=== PATIENT | male | born 1995 | race Two or more races ===

== ENCOUNTER 2024-12-28 19:37 | Emergency (ER) | payer OTHER, SELFPAY ==
[~2024-12-28] VITALS: Ht 185.4 cm; Wt 87.0 kg
[2024-12-28 19:40] VITALS: BP 118/72; PULSE 94; RESP 18; TEMP 98.4; O2SAT 97
[2024-12-28] MEDS: FLUORESCEIN SOD OPTH TEST STRIP LEFTEYE ONE (22:00)
[2024-12-28] MEDS: FLUORESCEIN SOD OPTH TEST STRIP ONE (22:06)
--- NOTE | 2024-12-28 22:14 | ED.PDOC ---
Eye-HPI HPI Comments PT PRESENTS TO ED WITH C/C OF LEFT EYE PAIN/FOREIGN BODY. STATES HE WAS AT [facility] GETTING RUST REMOVED FROM EYE, BUT PROVIDER UNABLE TO GET REMAINDER OF PARTICLES. SWELLING AND REDNESS NOTED TO EYE. denies vision loss or changes in vision. Chief Complaint: Eye Problem Time Seen by MD: 19:40 Reviewed Notes: Nurses Notes, Medications, Allergies Allergies: Coded Allergies: NO KNOWN ALLERGIES (Unverified , 12/28/24) Home Meds Active Scripts Moxifloxacin Hydrochloride (Moxifloxacin HCl) 0.5 % Thu, 1 DROP LEFTEYE TID for 7 Days, #5 ML Prov:SUSANNA GONCALVES [employer] SERVICE TECHNICIAN 12/28/24 Information Source: Patient Mode of Arrival: Ambulatory Past Medical History PAST MEDICAL HISTORY: Denies Surgical History: Denies all surgeries Family History Family History: Reviewed,noncontributory to illness Social History Smoker: Non-Smoker Alcohol: Denies ETOH Use Drugs: Denies Drug Use All Other Systems: Reviewed and Negative (see hpi) Physical Exam General Appearance: No Apparent Distress, Normal HEENT: Cornea (L) (see procedure note ), Pharynx Normal, TMs Normal Neck: Full Range of Motion, Non-Tender, Normal, Normal Inspection Respiratory: Chest Non-Tender, Lungs Clear, No Accessory Muscle Use, No Respiratory Distress, Normal Breath Sounds Cardiovascular: No Edema, No JVD, No Murmur, No Gallop, Normal Peripheral Pulses, Regular Rate/Rhythm Breast Exam: Deferred Gastrointestinal: No Organomegaly, Non Tender, No Pulsatile Mass, Normal Bowel Sounds, Soft Genitalia: Deferred Pelvic: Deferred Rectal: Deferred Extremities: No calf tenderness, Normal capillary refill, Normal inspection, Normal range of motion, Non-tender, No pedal edema Musculoskeletal : Apperance: Normal Neurologic: Alert, attendant coin operated laundry II-XII nml as Tested, No Motor Deficits, Normal Affect, Normal Mood, No Sensory Deficits Cerebellar Function: Normal Reflexes: Normal Skin: Dry, Normal Color, Warm Lymphatic: No Adenopathy Was a procedure done? Was a procedure done?: Yes Sedation Sedation?: No Informed consent obtained: Yes Other Procedure Procedure LAMP EXAMINATION OF LEFT EYE Indication POSSIBLE FOREIGN BODY Anesthetic TETRACAINE 1% ONE DROP Prep FLUORESCEIN 1 MG Success NO NOTED ULCERATIONS NO NOTED OBVIOUS FOREIGN BODIES. LIKELY CORNEAL ABRASION AT THE 9 O'CLOCK POSITION. NO GLOBE PENETRATION OR LEAKING. EENT DIFF Eye: Corneal Ulceration, Foreign Body-Conjunctiva, Foreign Body-Corneal, Foreign Body-Intraocular X-Ray, Labs, Meds, VS Vital Signs Date Time Temp Pulse Resp B/P (MAP) Pulse Ox O2 Delivery O2 Flow Rate FiO2 12/28/24 19:40 98.4 94 18 118/72 97 98.4 X-Ray, Labs, Meds, VS Comment SEE PROCEDURE NOTE. PATIENT IS STARTED ON ERYTHROMYCIN OINTMENT HERE IN THE ER. SCRIPT TRIAL OF MOXIFLOXACIN ANTIBIOTIC DROPS ADVISED TAKE MEDICATION PRESCRIBED SIDE EFFECTS DISCUSSED. ADVISED TO CALL IN THE MORNING WITH OPHTHALMOLOGY AND SCHEDULE AN APPOINTMENT WITHIN 24 HOURS. ADVISED ON ER RETURN PRECAUTIONS PATIENT INDICATES UNDERSTANDING AGREES WITH DISCHARGE PLAN OF CARE. Time of 1ST Reevaluation: 19:40 Reevaluation 1ST: Unchanged Time of 2ND Reevaluation: 22:14 Reevaluation 2ND: Improved Patient Education/Counseling: Diagnosis, Treatment, Prognosis, Need For Follow Up Family Education/Counseling: No Family Present SEPSIS Sepsis Screen Date sepsis recognized/suspect: Dec 28, 2024 Time Sepsis recognized/suspect: 1939 Recent Procedure: No On Antibiotic Therapy: No Respiratory Rate >20: No Heart Rate >90: Yes Temp<36 C (96.8 F) or >38.3 C: No SBP <90 or MAP <65 mmHG: No New Acute Mental Status Change: No Is the patient on CPAP, BIPAP,: No Vital Signs Date Time Temp Pulse Resp B/P (MAP) Pulse Ox O2 Delivery O2 Flow Rate FiO2 12/28/24 19:40 98.4 94 18 118/72 97 98.4 Departure 1 Departure Time of Disposition: 22:23 Impression: Primary Impression: Corneal abrasion, left Qualified Codes: S05.02XA - Injury of conjunctiva and corneal abrasion without foreign body, left eye, initial encounter Disposition: HOME / SELF CARE / HOMELESS Condition: Stable e-Prescriptions Moxifloxacin Hydrochloride (Moxifloxacin HCl) 0.5 % Thu 1 DROP LEFTEYE TID for 7 Days, #5 ML Prov: SUSANNA GONCALVES 12/28/24 Discharged With: Self Critical Care Note Critical Care Time?: No Stability Stability form required: No SUSANNA GONCALVES Dec 28, 2024 22:14
[2024-12-28] MEDS: ERYTHROMY OPTH OINT 5mg/gm 1gm or 3.5gm tube OP ONE (22:15)
[2024-12-28] MEDS ORDERED: MOXI0.5S3 LEFTEYE (22:26)
== END 2024-12-28 23:20 | disposition home or self-care (01) ==
LOC: ER 19:37
DX: S05.02XA Injury of conjunctiva and corneal abrasion without foreign body, left eye, initial encounter (principal); X58.XXXA Exposure to other specified factors, initial encounter; Y93.89 Activity, other specified; Y92.89 Other specified places as the place of occurrence of the external cause; Y99.8 Other external cause status